=== PATIENT | female | born 1995 | race African-American/Black ===

== ENCOUNTER 2016-03-26 08:46 | Emergency (ER) | payer OTHER ==
[~2016-03-26] VITALS: Ht 170.2 cm; Wt 69.9 kg
[~2016-03-26 08:46] MED LIST: CEFD1CAP14 PO
[2016-03-26 08:48] VITALS: TEMP 36.5; Ht 170.2 cm; Wt 69.9 kg
[2016-03-26 09:21] LABS: URINE APPEARANCE TURBID (CLEAR); URINE COLOR ORANGE; URINE EPITHELIAL CELL AUTO >30 /lpf (0-5); URINE NITRITE POS (NEG); URINE SPECIFIC GRAVITY 1.025 (1.000-1.030); UROBILINOGEN NEG (NEG); ZZUR CULT IF INDIC CLEAN CATCH YES
[2016-03-26 09:27] LABS: MANUAL MICROSCOPIC REQUIRED? NO; REVIEW REQ? YES; URINE BILIRUBIN NEG (NEG)
--- NOTE | 2016-03-26 09:31 | EMERGENCY ROOM VISIT NOTE ---
ED Visit Note First contact with patient: 09:04 CHIEF COMPLAINT: Frequent and painful urination since 4 AM HISTORY OF PRESENT ILLNESS: This 20-year-old female year old woman has had increased frequency of urination, burning pain with urination, and a feeling of incomplete voiding. She passes very small volumes of urine with each episode of voiding. She denies back pain, fever, or vaginal discharge. REVIEW OF SYSTEMS: 6 system review was performed and was negative unless stated otherwise in history of present illness. PMH: The patient is healthy; there is no significant medical or surgical history. SOCIAL HISTORY: Patient is a [employer] student. The patient denies any tobacco use but admits to occasional alcohol use. PHYSICAL EXAM: Vital Signs: Were reviewed Reviewed Nurse's notes. GEN.: 20-year -old female appears in no acute distress. MENTAL Status: Oriented 3. LUNGS: Clear to auscultation without wheezes rales or rhonchi. CARDIAC: Regular rate and rhythm without murmur. ABDOMEN: The abdomen is soft, mildly tender in the suprapubic area, but no masses or organs are felt. BACK: There is no CVA tenderness. EMERGENCY DEPARTMENT COURSE: Urinalysis shows pyuria and hematuria. Nitrate test is positive. The patient was informed of the findings and discharged home in stable condition. DIAGNOSIS: UTI - Cystitis DISCHARGE INSTRUCTIONS & TREATMENT: Push fluids. Take Macrobid as prescribed. Take Pyridium as prescribed. The Pyridium a turn your urine orange. Do not be alarmed. If symptoms persist or worsen, follow-up with your family physician or return to ER. Current/Historical Medications Scheduled Cefdinir (Omnicef), 300 MG PO Q12H Allergies Coded Allergies: No Known Allergies (Unverified , 01/27/16) Vital Signs Date Time Temp Pulse Resp B/P Pulse Ox O2 Delivery O2 Flow Rate FiO2 03/26/16 08:48 36.5 18 18 144/82 100 Room Air Laboratory Results Test 03/26/16 09:03 Urine Color ORANGE Urine Appearance TURBID (CLEAR) Urine pH 6.0 (4.5-7.5) Urine Specific [place] 1.025 (1.000-1.030) Urine Protein 3+ (NEG) Urine Glucose (UA) NEG (NEG) Urine Ketones NEG (NEG) Urine Occult Blood 3+ (NEG) Urine Nitrite POS (NEG) Urine Bilirubin NEG (NEG) Urine Urobilinogen NEG (NEG) Urine Leukocyte Esterase MODERATE (NEG) Departure Information Referrals No Doctor, Assigned (PCP) Patient Instructions My [facility]
[2016-03-26] MEDS ORDERED: NITR-5 PO (09:34)
[2016-03-26] MEDS ORDERED: PHEN-775 PO (09:34)
[2016-03-26 09:48] VITALS: BP 103/73; PULSE 80; O2SAT 99
--- NOTE | 2016-03-28 11:31 | Pharmacy Progress Note ---
ED Pharmacist Culture FollowUp Date of Service: Mar 28, 2016. Urine cx from 03/26/16 growing gardnerella-like bacilli 75,000CFU/mL from clean catch specimen. She had been dx with UTI in the ED on 03/26 and was discharged with abx (Omnicef) therapy. She did have symptoms of UTI (frequency, dysuria) in the ER. This cultured organism is not a likely cause of UTI and is likely representative phlebotomy services of contamination. UA did have > 30 epis. No action required at this time.
== END 2016-03-26 09:50 | disposition home or self-care (01) ==
LOC: C.EDB 08:47 → C.EDA 09:50
DX: N30.90 Cystitis, unspecified without hematuria (principal)

== ENCOUNTER 2016-07-03 10:02 | Emergency (ER) | payer OTHER ==
[~2016-07-03] VITALS: Ht 170.2 cm; Wt 67.5 kg
[2016-07-03 10:04] VITALS: BP 135/72; TEMP 36.9; Ht 170.2 cm; Wt 67.5 kg
--- NOTE | 2016-07-03 10:15 | EMERGENCY ROOM VISIT NOTE ---
ED Visit Note First contact with patient: 10:08 CHIEF COMPLAINT: Finger laceration HISTORY OF PRESENT ILLNESS: This 20-year-old female patient presents to the emergency department ambulatory after cutting the left third finger with a knife when she was cutting fruit just prior to arrival. The bleeding has stopped. Denies weakness or numbness of the finger. The patient has full range of motion of the fingers. The patient denies any pain. The patient denies any other injuries. The patient's tetanus shot is up to date. REVIEW OF SYSTEMS: A 6 system review of systems was completed with positives and pertinent negatives listed in the HPI. ALLERGIES: No known allergies MEDICATIONS: None PMH: None SOCIAL HISTORY: Patient does not smoke. She lives locally PHYSICAL EXAM: Vital Signs: Reviewed Nurse's notes, vital signs stable. GENERAL : This is a 20-year-old female, in no acute distress, well developed, well nourished. SKIN: There is a 1.5 cm long flap-like laceration on the distal palmar aspect of the left third finger. The edges gape apart with traction. There is no foreign material in the wound and it looks clean. There is minimal bleeding. No deep structures such as tendons, bones, or nerves are seen in the base of the wound. Extension and flexion of the finger is full and strong. Full range of motion of the wrist and other fingers. Capillary refill less than 2 seconds. Normal sensation to light and sharp touch. EMERGENCY DEPARTMENT COURSE: I examined the patient. Using sterile technique the wound was cleaned with Betadine. 6 ml of 1% buffered lidocaine was used to perform a digital block to anesthetize the patient. The area was sterilely draped. Once the patient was numb, the wound was copiously irrigated under pressure with sterile saline. The wound was explored and there were no deep structures such as tendons, bone, or ligaments present. The laceration was repaired using 4 simple interrupted 5-0 nylon sutures. The patient tolerated the procedure well. The bleeding stopped. The area was cleaned with sterile saline and dressed with bacitracin ointment and bandage. The patient was discharged home in good condition. DIAGNOSIS: Finger laceration DISCHARGE INSTRUCTIONS & TREATMENT: Keep wound clean and dry. Do not allow any crusting or dried blood to accumulate on sutures. If this occurs, use a 1:1 solution of hydrogen peroxide/water on a Q-tip to clean the wound. Use an antibiotic ointment for 3-4 days, then let wound dry. Suture removal in 10-12 days. Return sooner for any signs of infection (increasing redness, swelling, drainage). Ice and elevate for swelling and pain. Ibuprofen 600 mg every 6 hrs for pain. Keep covered when in sun until sutures removed then SPF 50 or higher for one year. Vitamin E oil if desired two weeks after suture removal for reduction of scar. Current/Historical Medications No Active Prescriptions or Reported Meds Allergies Coded Allergies: No Known Allergies (Unverified , 07/03/16) Vital Signs Date Time Temp Pulse Resp B/P Pulse Ox O2 Delivery O2 Flow Rate FiO2 07/03/16 11:21 74 16 100 07/03/16 10:04 36.9 86 18 135/72 100 Room Air Departure Information Impression Primary Impression: Laceration Dispostion Home / Self-Care Condition GOOD Prescriptions No Active Prescriptions or Reported Meds Referrals No Doctor, Assigned (PCP) Patient Instructions ED Laceration All, [facility] Additional Instructions Keep wound clean and dry. Do not allow any crusting or dried blood to accumulate on sutures. If this occurs, use a 1:1 solution of hydrogen peroxide/ water on a Q-tip to clean the wound. Use an antibiotic ointment for 3-4 days, then let wound dry. Suture removal in 10-12 days. Return sooner for any signs of infection (increasing redness, swelling, drainage). Ice and elevate for swelling and pain. Ibuprofen 600 mg every 6 hrs for pain. Keep covered when in sun until sutures removed then SPF 50 or higher for one year. Vitamin E oil if desired two weeks after suture removal for reduction of scar.
[2016-07-03] MEDS ORDERED: XYLOCAINE 1%/SOD BICARB 20 ML VIAL INFIL ONE (10:30)
[2016-07-03 11:21] VITALS: PULSE 74; O2SAT 100
== END 2016-07-03 11:22 | disposition home or self-care (01) ==
LOC: C.EDB 10:03
DX: S61.213A Laceration without foreign body of left middle finger without damage to nail, initial encounter (principal); W26.0XXA Contact with knife, initial encounter; Y93.G1 Activity, food preparation and clean up